=== PATIENT | male | born 1960 | race Caucasian/White ===

== ENCOUNTER → 2019-07-11 | Outpatient (CLI) | payer MEDICARE, OTHER ==
--- NOTE | 2019-07-11 14:33 | RADIOLOGY REPORT (SQ) ---
EXAM DESCRIPTION: MRI LT LOWER EXTREMITY COMBO COMPLETED DATE/TIME: 07/11/2019 1:02 pm REASON FOR STUDY: (M25.569)PAIN IN UNSPECIFIED KNEE M25.569 PAIN IN UNSPECIFIED KNEE COMPARISON: NO PLAIN FILM CORRELATION TECHNIQUE: Leftknee images acquired and stored on PACS. Multiplanar images include fat sensitive se quences as T1, water sensitive sequences as FST2 or STIR, cartilage sensitive sequences as FSPD, and gradient echo sequences. Patient was injected with 15 mL of IV Dotarem contrast, estimated GFR greater than 60 LIMITATIONS: Large field of view FINDINGS: JOINT AND BURSAE: No effusion. BONE CORTEX AND MARROW: Old healed spiral fracture distal right femoral diaphysis best shown on coron al images 14 through 17. Cortical defect in the anterior aspect, left proximal tibial metaphysis filled with enhancing granula tion tissue, best shown on axial image 33 and sagittal images 14-18. Soft tissue tract to the skin s urface, axial image 33. This could represent a traction pin tract. Small Bandar's abscess could yee ic this appearance. ACL: Thick and indistinct on sagittal images worrisome for tear PCL: Intact. MCL: Intact. No periligamentous edema or fluid. LCL: Intact. No periligamentous edema or fluid. MEDIAL MENISCUS: Not well seen, likely diffusely degenerated LATERAL MENISCUS: No tears. No abnormal signal. MEDIAL COMPARTMENT: There is high-grade chondromalacia throughout the medial compartment with a bone- on-bone appearance. There is bony spurring and subcortical edema. LATERAL COMPARTMENT: Cartilage preserved. No bone bruises or reactive marrow edema. No osteophytes. PATELLA: Mild medial patellar facet chondromalacia. No subchondral cysts. Medial and lateral retinacu la intact. EXTENSOR MECHANISM: Intact. Quadriceps and patella tendons normal. SOFT TISSUES: Adjacent muscles and subcutaneous tissues normal. Normal flow void in popliteal artery and vein. OTHER: No other significant finding. IMPRESSION: Old healed distal left femoral diaphysis fracture Advanced osteoarthritis in the medial compartment left knee, diffuse degeneration medial meniscus Defect in the anterior tibial metaphysis with a tract to the skin surface. This could represent an o ld traction pin tract with granulation tissue. Bandar's abscess could mimic this appearance. Large [id number] imaging. ACL is abnormal signal on sagittal T1 weighted images worrisome for tea r. TECHNICAL DOCUMENTATION: JOB ID: [id number] [employer]- All Rights Reserved Reading location - IP/workstation name: [email or web address]
== END ==
LOC: RAD 11:52
PROVIDERS: ATTEND Orthopaedic Surgery
DX: M25.562 Pain in left knee (principal)
CPT/HCPCS: 82565; 73720; A9576

== ENCOUNTER 2019-08-02 08:06 | Day surgery (SDC) | payer OTHER ==
[2019-07-25 10:56] LABS: HEMATOCRIT 36.1 % (37.9-51.0); HEMOGLOBIN 11.3 g/dL (13.5-17.0); MEAN CORPUSCULAR HEMOGLOBIN 22.1 pg (27.0-33.4); MEAN CORPUSCULAR HGB CONC 31.4 g/dL (32.0-36.0); MEAN CORPUSCULAR VOLUME 71 fl (80-97); PLATELET COUNT 299 10^3/uL (150-450); RED BLOOD COUNT 5.12 10^6/uL (4.35-5.55); RED CELL DISTRIBUTION WIDTH 19.7 % (11.5-14.0); WHITE BLOOD COUNT 4.2 10^3/uL (4.0-10.5)
--- NOTE | 2019-07-25 10:59 | RADIOLOGY REPORT (SQ) ---
EXAM DESCRIPTION: CHEST PA/LATERAL COMPLETED DATE/TIME: 07/25/2019 10:45 am REASON FOR STUDY: PRE-OP COMPARISON: 08/31/2013 EXAM PARAMETERS: NUMBER OF VIEWS: two views TECHNIQUE: Digital Frontal and Lateral radiographic views of the chest acquired. RADIATION DOSE: NA LIMITATIONS: none FINDINGS: LUNGS AND PLEURA: No opacities, masses or pneumothorax. No pleural effusion. MEDIASTINUM AND HILAR STRUCTURES: No masses or contour abnormalities. HEART AND VASCULAR STRUCTURES: Heart normal size. No evidence for failure. BONES: No acute findings. HARDWARE: Partially visualized cervical fusion hardware. Surgical clips overlie right axilla. OTHER: No other significant finding. IMPRESSION: No evidence of acute intrathoracic process. TECHNICAL DOCUMENTATION: JOB ID: [id number] [employer]- All Rights Reserved Reading location - IP/workstation name: [email or web address]
[2019-07-25 11:18] LABS: APPEARANCE,URINE CLEAR; BILIRUBIN,URINE NEGATIVE (NEGATIVE); COLOR,URINE YELLOW; GLUCOSE, URINE NEGATIVE (NEGATIVE); KETONES,URINE NEGATIVE (NEGATIVE); LEUKOCYTE ESTERASE,URINE NEGATIVE (NEGATIVE); NITRITE,URINE NEGATIVE (NEGATIVE); PROTEIN,URINE NEGATIVE (NEGATIVE); URINE SPECIFIC GRAVITY 1.016; UROBILINOGEN,URINE NEGATIVE mg/dL (<2.0)
[2019-07-25 11:26] LABS: ANION GAP 14 (5-19); BLOOD UREA NITROGEN 10 mg/dL (7-20); CALCIUM 9.1 mg/dL (8.4-10.2); CARBON DIOXIDE 25 mmol/L (22-30); CHLORIDE 106 mmol/L (98-107); GLUCOSE 99 mg/dL (75-110)
--- NOTE | 2019-07-27 00:01 | EKG REPORT ---
SEVERITY:- ABNORMAL ECG - SINUS RHYTHM PROBABLE LEFT ATRIAL ABNORMALITY BORDERLINE INFERIOR Q WAVES LVH VS CONSIDER ISCHEMIA, LATERAL LEADS : Confirmed by: Maye Chao 27-Jul-2019 00:00:40
[~2019-08-02 08:06] MED LIST: CEFAZOLIN SODIUM 2 GM in DEXTROSE 5%-WATER 100 ML IV PRN; LACTATED RINGERS 1000 ML IV PRN; LIDOCAINE 0.5% INJ-PF (5 MG/ML) 50 ML SDV SUBCUT PRN
[2019-08-02] MEDS ORDERED: MIDAZOLAM 2 MG/2 ML INJ ONE (11:33)
[2019-08-02] MEDS ORDERED: FENTANYL CITRATE INJ/PF 100 MCG/2 ML AMPUL ONE (11:33)
[2019-08-02] MEDS ORDERED: PROPOFOL INJ 200 MG/20 ML VIAL IV ONE (11:34)
[2019-08-02] MEDS ORDERED: MEPERIDINE HCL/PF INJ 25 MG/1 ML DISP.SYRIN IV PRN (12:19)
[2019-08-02] MEDS ORDERED: MORPHINE SULFATE 10 MG/ML INJ IV PRN (12:19)
[2019-08-02] MEDS ORDERED: DIPHENHYDRAMINE HCL 50 MG/ML VIAL IV PRN (12:19)
[2019-08-02] MEDS ORDERED: PROMETHAZINE HCL INJ 25 MG/1 ML VIAL IV PRN (12:19)
[2019-08-02] MEDS ORDERED: FENTANYL CITRATE INJ/PF 100 MCG/2 ML AMPUL IV PRN ×3 (12:19)
--- NOTE | 2019-08-02 12:39 | Operative Report ---
Operative Report DATE OF SURGERY: 08/02/19 PREOPERATIVE DIAGNOSIS: Left tibial osteomyelitis OPERATION: Excision left tibial osteomyelitis SURGEON: CHELI LUBIN ANESTHESIA: Spinal TISSUE REMOVED OR ALTERED: Tissue to pathology. Cultures to microbiology ESTIMATED BLOOD LOSS: Minimal PROCEDURE: The draining sinus tract is proximal medial tibia at the metadiaphysis. This is ellipsed out. This is carried down to the level of the bone. The underlying sinus tract into the bone is easily identified. This is initially evacuated using a curette and involves a lot of fair amount of soft tissue. A bur was then used to remove all the edges of bone within the sinus tract. Its irrigated with bulb lavage. Polymethylmethacrylate tobramycin was mixed and used to fill the hole. The wound was then closed using PDS suture. A sterile compressive dressing was applied and patient's return to the PACU in satisfactory condition.
--- NOTE | 2019-08-02 12:42 | Discharge Summary ---
Discharge Summary (SDC) - Discharge Final Diagnosis: Left tibial osteomyelitis Date of Surgery: 08/02/19 Discharge Date: 08/02/19 Condition: Good Treatment or Instructions: Weightbearing as tolerated. Remove compressive wrap on Wednesday. Underlying OpSite dressing can be left in place until you return to the office. Prescriptions: Oxycodone HCl/Acetaminophen [Percocet 5-325 mg Tablet] 1 tab PO Q6 PRN #25 tab PRN Reason: Sulfamethoxazole/Trimethoprim [Septra-Ds 800-160 mg Tablet] 1 tab PO BID #24 tablet [facility]errals: [facility] [Primary [facility]] - Discharge Diet: Regular Respiratory Treatments at Home: Deep Breathing/Coughing Discharge Activity: Balance Activity w/Rest, No tub bath Home Care Assistance: None Needed Report the Following to Your Physician Immediately: Shortness of Breath, Fever over 101 Degrees, Drainage-Foul Smelling
[2019-08-02] MEDS ORDERED: EPHEDRINE SULFATE INJ 50 MG/1 ML AMPULE ONE (13:01)
--- NOTE | 2019-08-02 15:29 | RADIOLOGY REPORT (SQ) ---
EXAM DESCRIPTION: KNEE LEFT 2 VIEWS; NO CHG FLUORO COMPLETED DATE/TIME: 08/02/2019 3:15 pm REASON FOR STUDY: LEFT KNEE OSTEOTOMY ASST WITH FLUORO IN OR M86.662 OTHER CHRONIC OSTEOMYELITIS, L EFT TIBIA AND FIBULA COMPARISON: None. FLUOROSCOPY TIME: Less than 1 minute. Spot images saved to PACS. TECHNIQUE: Intra-operative images acquired during surgical procedure to evaluate progress. NUMBER OF IMAGES: 1 LIMITATIONS: None. FINDINGS: Fluoroscopy was provided for intraoperative procedure. Please refer to the operative repo rt for further discussion. IMPRESSION: IMAGE(S) OBTAINED DURING PROCEDURE. COMMENT: Quality ID [id number]: Final reports for procedures using fluoroscopy that document radiation exp osure indices, or exposure time and number of fluorographic images (if radiation exposure indices are not available) Please consult full operative report of the attending physician for description of the procedure. TECHNICAL DOCUMENTATION: JOB ID: [id number] [employer]- All Rights Reserved Reading location - IP/workstation name: [email or web address]
--- NOTE | 2019-08-02 15:29 | RADIOLOGY REPORT (SQ) ---
EXAM DESCRIPTION: KNEE LEFT 2 VIEWS; NO CHG FLUORO COMPLETED DATE/TIME: 08/02/2019 3:15 pm REASON FOR STUDY: LEFT KNEE OSTEOTOMY ASST WITH FLUORO IN OR M86.662 OTHER CHRONIC OSTEOMYELITIS, L EFT TIBIA AND FIBULA COMPARISON: None. FLUOROSCOPY TIME: Less than 1 minute. Spot images saved to PACS. TECHNIQUE: Intra-operative images acquired during surgical procedure to evaluate progress. NUMBER OF IMAGES: 1 LIMITATIONS: None. FINDINGS: Fluoroscopy was provided for intraoperative procedure. Please refer to the operative repo rt for further discussion. IMPRESSION: IMAGE(S) OBTAINED DURING PROCEDURE. COMMENT: Quality ID [id number]: Final reports for procedures using fluoroscopy that document radiation exp osure indices, or exposure time and number of fluorographic images (if radiation exposure indices are not available) Please consult full operative report of the attending physician for description of the procedure. TECHNICAL DOCUMENTATION: JOB ID: [id number] [employer]- All Rights Reserved Reading location - IP/workstation name: [email or web address]
[2019-08-02 18:12] VITALS: BP 157/73
== END 2019-08-02 16:50 | disposition home or self-care (01) ==
LOC: OROUT 08:06
PROVIDERS: ATTEND Orthopaedic Surgery
DX: M86.662 Other chronic osteomyelitis, left tibia and fibula (principal); M86.162 Other acute osteomyelitis, left tibia and fibula; B95.61 Methicillin susceptible Staphylococcus aureus infection as the cause of diseases classified elsewhere; I10 Essential (primary) hypertension; Z87.891 Personal history of nicotine dependence; Z86.73 Personal history of transient ischemic attack (TIA), and cerebral infarction without residual deficits
CPT/HCPCS: 27640; 93005; 36415; 87070; 87205; 85027; 87075; 87077; 80048; 81001; 87186; 88305 ×2; 71046; 73560; 93010; C1713; J2250; J0690; J3490; J7060; J2704; 01480; J3010

== ENCOUNTER → 2019-10-04 | Outpatient (CLI) | payer OTHER, MEDICARE ==
[2019-10-04 09:35] LABS: ABSOLUTE EOSINOPHILS # (AUTO) 0.2 10^3/uL (0.0-0.6); ABSOLUTE LYMPHOCYTES (AUTO) 1.7 10^3/uL (0.5-4.7); ABSOLUTE MONOCYTES (AUTO) 0.8 10^3/uL (0.1-1.4); ABSOLUTE NEUT (AUTO) 2.8 10^3/uL (1.7-8.2); BASOPHILS % (AUTO) 0.9 % (0-2); HEMATOCRIT 32.1 % (37.9-51.0); HEMOGLOBIN 10.2 g/dL (13.5-17.0); LYMPHOCYTES % (AUTO) 31.1 % (13-45); MEAN CORPUSCULAR HEMOGLOBIN 22.2 pg (27.0-33.4); MEAN CORPUSCULAR HGB CONC 31.9 g/dL (32.0-36.0); MEAN CORPUSCULAR VOLUME 70 fl (80-97); MONOCYTES % (AUTO) 13.5 % (3-13); PLATELET COUNT 259 10^3/uL (150-450); RED CELL DISTRIBUTION WIDTH 18.4 % (11.5-14.0); SEGMENTED NEUTROPHILS % (AUTO) 50.5 % (42-78); TOTAL CELLS COUNTED % (AUTO) 100 %; WHITE BLOOD COUNT 5.6 10^3/uL (4.0-10.5)
[2019-10-04 09:43] LABS: APPEARANCE,URINE CLEAR; BILIRUBIN,URINE NEGATIVE (NEGATIVE); COLOR,URINE YELLOW; GLUCOSE, URINE NEGATIVE (NEGATIVE); KETONES,URINE NEGATIVE (NEGATIVE); LEUKOCYTE ESTERASE,URINE NEGATIVE (NEGATIVE); NITRITE,URINE NEGATIVE (NEGATIVE); PROTEIN,URINE NEGATIVE (NEGATIVE); URINE SPECIFIC GRAVITY 1.021; UROBILINOGEN,URINE NEGATIVE mg/dL (<2.0)
[2019-10-04 10:11] LABS: INTERNATIONAL RATION (INR) 1.08; PROTHROMBIN TIME 14.1 SEC (11.4-15.4)
[2019-10-04 10:12] LABS: PARTIAL THROMBOPLASTIN TIME 26.5 SEC (23.5-35.8)
[2019-10-04 10:14] LABS: ANION GAP 10 (5-19); BLOOD UREA NITROGEN 16 mg/dL (7-20); CARBON DIOXIDE 23 mmol/L (22-30); CHLORIDE 106 mmol/L (98-107); GLUCOSE 105 mg/dL (75-110); POTASSIUM 4.1 mmol/L (3.6-5.0)
--- NOTE | 2019-10-04 10:27 | RADIOLOGY REPORT (SQ) ---
EXAM DESCRIPTION: CHEST PA/LATERAL COMPLETED DATE/TIME: 10/04/2019 8:48 am REASON FOR STUDY: PRE-OP COMPARISON: 07/25/2019 EXAM PARAMETERS: NUMBER OF VIEWS: two views TECHNIQUE: Digital Frontal and Lateral radiographic views of the chest acquired. RADIATION DOSE: NA LIMITATIONS: none FINDINGS: LUNGS AND PLEURA: No opacities, masses or pneumothorax. No pleural effusion. MEDIASTINUM AND HILAR STRUCTURES: No masses or contour abnormalities. HEART AND VASCULAR STRUCTURES: Heart normal size. No evidence for failure. BONES: No acute findings. HARDWARE: None in the chest. OTHER: No other significant finding. IMPRESSION: NO SIGNIFICANT RADIOGRAPHIC FINDING IN THE CHEST. TECHNICAL DOCUMENTATION: JOB ID: [id number] [email or web address]- All Rights Reserved Reading location - IP/workstation name: [email or web address]
--- NOTE | 2019-10-04 11:39 | EKG REPORT ---
SEVERITY:- ABNORMAL ECG - SINUS RHYTHM LEFT ATRIAL ABNORMALITY LEFT VENTRICULAR HYPERTROPHY BORDERLINE INFERIOR Q WAVES ABNORMAL T, CONSIDER ISCHEMIA, DIFFUSE LEADS : Confirmed by: Magali Kunz MD 04-Oct-2019 11:38:35
== END ==
LOC: OD 08:19
PROVIDERS: ATTEND Orthopaedic Surgery
DX: Z01.812 Encounter for preprocedural laboratory examination (principal); Z01.810 Encounter for preprocedural cardiovascular examination; Z01.811 Encounter for preprocedural respiratory examination; M17.12 Unilateral primary osteoarthritis, left knee; I10 Essential (primary) hypertension
CPT/HCPCS: 36415; 71046; 80048; 81001; 85025; 85610; 85652; 85730; 86140; 93005; 93010

== ENCOUNTER 2019-10-18 09:30 | Inpatient (IN) | payer OTHER, MEDICARE ==
[2019-11-01] MEDS ORDERED: LIDOCAINE 0.5% INJ-PF (5 MG/ML) 50 ML SDV SUBCUT PRN (05:00)
[2019-11-01] MEDS ORDERED: IBUPROFEN 800 MG in NORMAL SALINE 250 ML IV PRN (05:00)
[2019-11-01] MEDS ORDERED: CEFAZOLIN INJ 1 GM VIAL IV PRN (05:00)
[2019-11-01] MEDS ORDERED: PANTOPRAZOLE SODIUM 20 MG TABLET.DR PO PRN (05:00)
[2019-11-01] MEDS ORDERED: VANCOMYCIN HCL 1,000 MG in DEXTROSE 5%-WATER 250 ML IV PRN (05:00)
[2019-11-01] MEDS ORDERED: LACTATED RINGERS 1000 ML IV PRN (05:00)
[2019-11-01] MEDS ORDERED: OXYCODONE HCL SR 10 MG TABLET PO PRN (05:00)
[2019-11-01] MEDS ORDERED: CEFAZOLIN INJ 1 GM VIAL ONE (05:39)
[2019-11-01] MEDS ORDERED: OXYCODONE HCL SR 10 MG TABLET PO ONE (05:39)
[2019-11-01] MEDS ORDERED: PANTOPRAZOLE SODIUM 20 MG TABLET.DR PO ONE (05:39)
[2019-11-01] MEDS ORDERED: FENTANYL CITRATE INJ/PF 100 MCG/2 ML AMPUL ONE (07:11)
[2019-11-01] MEDS ORDERED: KETAMINE HCL INJ 500 MG/10 ML VIAL ONE (07:11)
[2019-11-01] MEDS ORDERED: TRANEXAMIC ACID INJ/PF 1,000 MG/10 ML SDV ONE ×2 (07:12→10:16)
[2019-11-01] MEDS ORDERED: MIDAZOLAM 2 MG/2 ML INJ ONE (07:12)
[2019-11-01] MEDS ORDERED: PROPOFOL INJ 200 MG/20 ML VIAL IV ONE (07:12)
[2019-11-01] MEDS ORDERED: BUPIVACAINE INJ/PF LIPOSOME/PF 266 MG/20 ML SDV ONE (07:14)
[2019-11-01] MEDS ORDERED: VANCOMYCIN HCL INJ 1000 MG VIAL ONE (07:23)
[2019-11-01] MEDS ORDERED: MEPERIDINE HCL/PF INJ 25 MG/1 ML DISP.SYRIN IV PRN (08:11)
[2019-11-01] MEDS ORDERED: DIPHENHYDRAMINE HCL 50 MG/ML VIAL IV PRN (08:11)
[2019-11-01] MEDS ORDERED: PROMETHAZINE HCL INJ 25 MG/1 ML VIAL IV PRN ×2 (08:11)
[2019-11-01] MEDS ORDERED: OXYCODONE-ACETAMINOPHEN 5-325 MG TABLET PO PRN ×2 (08:11)
[2019-11-01] MEDS ORDERED: FENTANYL CITRATE INJ/PF 100 MCG/2 ML AMPUL IV PRN ×3 (08:11)
[2019-11-01] MEDS ORDERED: PHENYLEPHRINE HCL INJ/PF 10 MG/1 ML SDV ONE (08:24)
[2019-11-01] MEDS ORDERED: ONDANSETRON HCL 8 MG TABLET PO PRN (08:48)
--- NOTE | 2019-11-01 08:48 | Operative Report ---
Operative Report DATE OF SURGERY: 11/01/19 PREOPERATIVE DIAGNOSIS: Posttraumatic left knee arthritis OPERATION: Left knee arthroplasty SURGEON: CHELI LUBIN ANESTHESIA: Spinal TISSUE REMOVED OR ALTERED: Bone to pathology ESTIMATED BLOOD LOSS: 25 PROCEDURE: Implants used: Femur: [place] triathlon size 6 CR femur Tibia: 6 tibia Tibial liner: 9 mm CS insert Patella: 38 mm oval patella Preamble: The patient is status post balance skeletal traction for a left distal third femur fracture in the distant past with a subsequent development of a chronic osteomyelitis and a draining sinus tract from the tibia that persisted for approximately 30 years. The patient underwent an excision of the sequestrum several months ago and laboratory values subsequently normalized. Procedure: With the patient supine on the operating table the left the limb is prepped and draped in a sterile fashion. The limb was elevated for exsanguination and the tourniquet inflated to 280 torr. A standard midline median parapatellar approach the knee is taken. Access is gained to the femoral canal through the intercondylar notch. Intramedullary alignment instrumentation used to resect 10 mm of distal femur in 5 of valgus. Because of the distal femoral malunion the intramedullary guide don could not be inserted completely into the diaphysis. Hence an extra medullary guide system was used to check the alignment of felt to be adequate. Sizing guide indicated a size 6 femur. Appropriate cutting jig is then used to fashion anterior posterior and chamfer cuts. A trial reduction femurs performed and this is judged to be adequate. Attention was next turned to the tibia. Using an extra medullary alignment system 9 millimeters was resected off the lateral tibial plateau. Because the tibia had head chronic osteomyelitis in the past cultures were taken of the cuts tibial surface and sent to microbiology. This is sized to a size 6 tibia. A trial reduction was now performed with a 6 femur and a 6 tibia using a 9 millimeters spacer. It is full extension and central patellofemoral tracking. The articular surface the patella was next resected using an oscillating saw. All trial implants were removed. Polymethylmethacrylate is mixed and used to cement the above implants in place. On adequate curing the cement excess cement was removed the tourniquet was deflated hemostasis obtained the wound is then closed in layers using interrupted Vicryl followed by roxana. A sterile compressive dressing was applied and the patient returned to recovery room in satisfactory condition.
[2019-11-01] MEDS ORDERED: RINGERS SOLUTION,LACTATED 1,000 ML IV PRN (08:49)
[2019-11-01] MEDS ORDERED: ZOLPIDEM TARTRATE 5 MG TABLET PO PRN (08:49)
[2019-11-01] MEDS ORDERED: MAG HYDROX/AL HYDROX/SIMETH SUSP 30 ML UDCUP PO PRN (08:49)
[2019-11-01] MEDS ORDERED: ACETAMINOPHEN 325 MG TABLET PO PRN (08:49)
[2019-11-01] MEDS ORDERED: ONDANSETRON HCL INJ/PF 4 MG/2 ML SDV IV PRN (08:49)
[2019-11-01] MEDS ORDERED: TRANEXAMIC ACID INJ/PF 1,000 MG/10 ML SDV IV ONE (10:00)
--- NOTE | 2019-11-01 10:02 | RADIOLOGY REPORT (SQ) ---
EXAM DESCRIPTION: KNEE LEFT 2 VIEWS COMPLETED DATE/TIME: 11/01/2019 9:50 am REASON FOR STUDY: Post OP -Long Cassette in PACU M17.12 UNILATERAL PRIMARY OSTEOARTHRITIS, LEFT KNE E COMPARISON: None. NUMBER OF VIEWS: Two view(s). TECHNIQUE: Digital radiographic images of the left knee post-procedure. LIMITATIONS: None. FINDINGS: BONES: No worrisome or unexpected findings post-procedure. Dysmorphic distal femur lizy tible with remote injury. Additional posttraumatic/surgical changes at the proximal tibial with intr amedullary methylmethacrylate. DEVICE: Total knee arthroplasty. SOFT TISSUES: No worrisome findings. Expected postoperative soft tissue changes. Vascular calcific ations. IMPRESSION: SATISFACTORY POSTOPERATIVE LEFT KNEE. TECHNICAL DOCUMENTATION: JOB ID: [id number] 2011 [employer]- All Rights Reserved Reading location - IP/workstation name: [email or web address]
[2019-11-01] MEDS: IBUPROFEN 800 MG in NORMAL SALINE 250 ML IV SCH ×2 (13:46→21:17)
[2019-11-01] MEDS: DIPHENHYDRAMINE HCL 50 MG/ML VIAL IV PRN ×2 (14:58→21:18)
[2019-11-01] MEDS: OXYCODONE HCL IR 5 MG TABLET PO PRN (15:04)
[2019-11-01] MEDS: SENNOSIDES/DOCUSATE 8.6-50 MG 1 EACH TABLET PO SCH (17:30)
[2019-11-01] MEDS: PANTOPRAZOLE SODIUM 40 MG TABLET.DR PO SCH (17:30)
[2019-11-01] MEDS ORDERED: AMLODIPINE BESYLATE 5 MG TABLET PO ONE ×2 (19:02→22:00)
[2019-11-01] MEDS ORDERED: HYDRALAZINE HCL INJ/PF 20 MG/1 ML SDV IV PRN (19:02)
--- NOTE | 2019-11-01 19:19 | PDOC CONSULTATION ---
Consultation Consult Date: 11/01/19 Attending physician:: CHELI LUBIN Provider Consulted: JENNIE PONCE Consult reason:: HTN History of Present Illness Admission Date/PCP: 11/01/19 05:[facility] Patient complains of: left knee pain s/p arthroplasty History of Present Illness: SELMA CROOKS is a 59 year old male with a past medical history of h ypertension, GERD, stage IV throat cancer who is admitted to orthopedics for left knee arthroplasty. Hospitalist service was consulted due to postoperative hypertension (175/56). EKG (10/04/2019) showed LVH. CXR (10/04/2019) was negative for significant findings. No pre-or postoperative laboratory work is available. Patient was briefly seen this evening. He is found sitting up to the recliner, comfortably, on room air. He denies all complaints of headache, dizziness, chest pain, palpitations, dyspnea, orthopnea. He is uncertain as to how well controlled his blood pressure is on his home medi cation regiment. However, he is adamant that he took his morning lisinopril dose. Otherwise, he has no questions or concerns today; hopeful to discharge home tomorrow as previously planned. No concerns per nursing. Past Medical History Cardiac Medical History: Reports: Coronary Artery Disease, Hyperlipidema, Hypertension Denies: Atrial Fibrillation, Congestive Heart Failure, Myocardial Infarction Pulmonary Medical History: Reports: None EENT Medical History: Reports: None Neurological Medical History: Reports: None Endocrine Medical History: Reports: Obesity Denies: Diabetes Mellitus Type 2, Hypothyroidism Renal/ Medical History: Reports: None Malignancy Medical History: Reports: Other GI Medical History: Reports: Gastroesophageal Reflux Disease Denies: Crohn's Disease, Hiatal Hernia Musculoskeltal Medical History: Reports: Arthritis Denies: Fibromyalgia Psychiatric Medical History: Reports: Post Traumatic Stress Disorder Denies: Depression, General Anxiety Disorder Traumatic Medical History: Reports: None Hematology: Denies: Anemia Infectious Medical History: Reports: None Past Surgical History Past Surgical History: Reports: Orthopedic Surgery - Back surgery x2, left femur fracture as a teenager Denies: Cardiac Catheterization, Coronary Artery Bypass Graft, Coronary Stent, Valve Replacement, Vascular Surgery Social History Information Source: Patient Lives with: Family Smoking Status: Former Smoker Frequency of Alcohol Use: Social Last Alcohol Use: 10/28/19 - "few drinks on weekends" Hx Recreational Drug Use: No Hx Prescription Drug Abuse: No - Advance Directive Resuscitation Status: Full Code Family History Family History: Reviewed & Not Pertinent Parental Family History Reviewed: Yes Children Family History Reviewed: Yes Sibling(s) Family History Reviewed.: Yes Medication/Allergy Home Medications: Aspirin [Aspirin EC] 81 mg PO DAILY 08/31/13 Lisinopril [Prinivil 40 mg Tablet] 40 mg PO BID 08/31/13 Isosorbide Mononitrate [Imdur 30 mg Tablet.er] 30 mg PO DAILY 08/01/19 Pantoprazole Sodium 40 mg PO BID 08/01/19 Ondansetron HCl [Zofran 8 mg Tablet] 8 mg PO Q4HP PRN 10/26/19 Allergies/Adverse Reactions: codeine Allergy (Mild, Verified 11/01/19 14:02) Generalized Itching Review of Systems Constitutional: ABSENT: chills, fever(s), headache(s), weight gain, weight loss Eyes: ABSENT: visual disturbances Ears: ABSENT: hearing changes Cardiovascular: ABSENT: chest pain, dyspnea on exertion, edema, orthropnea, palpitations Respiratory: ABSENT: cough, hemoptysis Gastrointestinal: ABSENT: abdominal pain, constipation, diarrhea, hematemesis, hematochezia, nausea, vomiting Genitourinary: ABSENT: dysuria, hematuria Musculoskeletal: PRESENT: as per HPI. ABSENT: joint swelling Integumentary: ABSENT: rash, wounds Neurological: ABSENT: abnormal gait, abnormal speech, confusion, dizziness, focal weakness, syncope Psychiatric: ABSENT: anxiety, depression, homidical ideation, suicidal ideation Endocrine: ABSENT: cold intolerance, heat intolerance, polydipsia, polyuria Hematologic/Lymphatic: ABSENT: easy bleeding, easy bruising Physical Exam Vital Signs: Temp Pulse Resp BP Pulse Ox 97.3 F 89 16 178/76 H 97 11/01/19 16:29 11/01/19 16:29 11/01/19 16:29 11/01/19 17:38 11/01/19 16:29 Intake & Output 10/31/19 11/01/19 11/02/19 06:59 06:59 06:59 Intake Total 0 5427 Output Total 3429 Balance 0 1997 Weight 104.6 kg General appearance: PRESENT: no acute distress, cooperative, obese, well- developed, well-nourished Head exam: PRESENT: atraumatic, normocephalic Eye exam: PRESENT: conjunctiva pink, EOMI, PERRLA. ABSENT: scleral icterus Mouth exam: PRESENT: moist, tongue midline Neck exam: ABSENT: carotid bruit, JVD, lymphadenopathy, thyromegaly Respiratory exam: PRESENT: clear to auscultation marques, symmetrical, unlabored. ABSENT: rales, rhonchi, wheezes Cardiovascular exam: PRESENT: RRR, +S1, +S2. ABSENT: diastolic murmur, rubs, systolic murmur Rectal exam: PRESENT: deferred Extremities exam: PRESENT: tenderness - lt knee. ABSENT: calf tenderness, clubbing, pedal edema Musculoskeletal exam: PRESENT: ambulatory - w/ walker Neurological exam: PRESENT: alert, awake, oriented to person, oriented to place, oriented to time, oriented to situation, CN II-XII grossly intact. ABSENT: motor sensory deficit Psychiatric exam: PRESENT: appropriate affect, normal mood. ABSENT: homicidal ideation, suicidal ideation Skin exam: PRESENT: dry, intact, warm. ABSENT: cyanosis, rash Results Impressions: Knee X-Ray 11/01/19 08:51 IMPRESSION: SATISFACTORY POSTOPERATIVE LEFT KNEE. Assessment and Plan - Diagnosis (1) Hypertension Qualifiers: Hypertension type: essential hypertension Qualified Code(s): I10 - Essential (primary) hypertension Is this a current diagnosis for this admission?: Yes Plan: Patient w/ history of HTN; likely worsened secondary to pain CBC, BMP pending Continue home dose lisinopril and Isosorbide. Amlodipine 5 mg p.o. x 1 IV hydralazine as needed for blood pressure control. Daily aspirin therapy. Appropriate pain control as per Orthopedics. Cardiac diet. (2) Obesity (BMI 30-39.9) Is this a current diagnosis for this admission?: Yes Plan: Cardiac diet. Lifestyle modification and dietary discretion advised. (3) GERD (gastroesophageal reflux disease) Qualifiers: Esophagitis presence: without esophagitis Qualified Code(s): K21.9 - Gastro-esophageal reflux disease without esophagitis Is this a current diagnosis for this admission?: Yes Plan: Continue home dose Protonix. (4) History of arthroplasty of left knee Is this a current diagnosis for this admission?: Yes Plan: Left knee arthroplasty by Dr. Lubin today. Management per his expertise - Time Time Spent with patient: 25-34 minutes Medications reviewed and adjusted accordingly: Yes Anticipated discharge: Home
[2019-11-01] MEDS ORDERED: VANCOMYCIN HCL 1,000 MG in DEXTROSE 5%-WATER 250 ML IV ONE (20:49)
[2019-11-01] MEDS: OXYCODONE HCL SR 10 MG TABLET PO SCH (21:18)
[2019-11-01] MEDS: LISINOPRIL 10 MG TABLET PO SCH (21:20)
[2019-11-02] MEDS: OXYCODONE HCL IR 5 MG TABLET PO PRN (02:01)
[2019-11-02 06:13] LABS: HEMATOCRIT 32.3 % (37.9-51.0); HEMOGLOBIN 10.2 g/dL (13.5-17.0); MEAN CORPUSCULAR HEMOGLOBIN 21.9 pg (27.0-33.4); MEAN CORPUSCULAR HGB CONC 31.4 g/dL (32.0-36.0); MEAN CORPUSCULAR VOLUME 70 fl (80-97); PLATELET COUNT 224 10^3/uL (150-450); RED BLOOD COUNT 4.64 10^6/uL (4.35-5.55); RED CELL DISTRIBUTION WIDTH 18.5 % (11.5-14.0); WHITE BLOOD COUNT 8.7 10^3/uL (4.0-10.5)
[2019-11-02 06:37] LABS: ANION GAP 10 (5-19); BLOOD UREA NITROGEN 18 mg/dL (7-20); CALCIUM 8.8 mg/dL (8.4-10.2); CARBON DIOXIDE 26 mmol/L (22-30); CHLORIDE 104 mmol/L (98-107); GLUCOSE 101 mg/dL (75-110); POTASSIUM 4.4 mmol/L (3.6-5.0)
[2019-11-02] MEDS: IBUPROFEN 800 MG in NORMAL SALINE 250 ML IV SCH (06:55)
--- NOTE | 2019-11-02 07:04 | PDOC DISCHARGE SUMMARY ---
Impression - Admit/DC Date/PCP Admission Date/Primary Care Provider: 11/01/19 05:[facility] Discharge Date: 11/02/19 - Discharge Diagnosis (1) Arthritis of left knee Is this a current diagnosis for this admission?: Yes (2) Hypertension Is this a current diagnosis for this admission?: Yes - Additional Information Resuscitation Status: Full Code Discharge Diet: Regular Discharge Activity: Balance Activity w/Rest, No tub bath Referrals: CHELI LUBIN MD [ACTIVE STAFF] - 11/14/19 9:30 am Home Medications: Aspirin [Aspirin EC] 81 mg PO DAILY 08/31/13 Lisinopril [Prinivil 40 mg Tablet] 40 mg PO BID 08/31/13 Isosorbide Mononitrate [Imdur 30 mg Tablet.er] 30 mg PO DAILY 08/01/19 Pantoprazole Sodium 40 mg PO BID 08/01/19 Ondansetron HCl [Zofran 8 mg Tablet] 8 mg PO Q4HP PRN 10/26/19 History of Present Illiness History of Present Illness: SELMA CROOKS is a 59 year old male 59-year-old black male with a posttraumatic left knee osteoarthritis and a longstanding draining osteomyelitis which was treated recently by excision of the sequestrum. Patient is now admitted for elective left knee arthroplasty. Hospital Course Hospital Course: Patient is admitted through the operating where he undergoes uncomplicated left knee arthroplasty. Is returned to floor in satisfactory vision. He ambulates 150 feet with physical therapy on the day of surgery. Compressive dressing was removed on the first postoperative morning. Underlying OpSite dressings clean dry and intact. Physical Exam Vital Signs: Temp Pulse Resp BP Pulse Ox 36.9 C 84 18 173/69 H 95 11/02/19 04:03 11/02/19 04:03 11/02/19 04:03 11/02/19 04:03 11/02/19 04:03 Intake & Output 11/01/19 11/02/19 11/03/19 06:59 06:59 06:59 Intake Total 0 5977 Output Total 3429 Balance 0 2548 Weight 104.6 kg General appearance: PRESENT: mild distress Head exam: PRESENT: normocephalic Respiratory exam: PRESENT: unlabored Cardiovascular exam: PRESENT: RRR GI/Abdominal exam: PRESENT: soft Rectal exam: PRESENT: deferred Musculoskeletal exam: PRESENT: other - Left knee OpSite dressings clean dry and intact. Minimal pedal edema. Distal neurovascular examination is intact. Results Laboratory Results: WBC 8.7 10^3/uL (4.0-10.5) 11/02/19 05:28 RBC 4.64 10^6/uL (4.35-5.55) 11/02/19 05:28 Hgb 10.2 g/dL (13.5-17.0) L 11/02/19 05:28 Hct 32.3 % (37.9-51.0) L 11/02/19 05:28 MCV 70 fl (80-97) L 11/02/19 05:28 MCH 21.9 pg (27.0-33.4) L 11/02/19 05:28 MCHC 31.4 g/dL (32.0-36.0) L 11/02/19 05:28 RDW 18.5 % (11.5-14.0) H 11/02/19 05:28 Plt Count 224 10^3/uL (150-450) 11/02/19 05:28 Sodium 140.1 mmol/L (137-145) 11/02/19 05:28 Potassium 4.4 mmol/L (3.6-5.0) 11/02/19 05:28 Chloride 104 mmol/L (98-107) 11/02/19 05:28 Carbon Dioxide 26 mmol/L (22-30) 11/02/19 05:28 Anion Gap 10 (5-19) 11/02/19 05:28 BUN 18 mg/dL (7-20) 11/02/19 05:28 Creatinine 1.47 mg/dL (0.52-1.25) H 11/02/19 05:28 Est GFR ( Amer) 59 (>60) L 11/02/19 05:28 Est GFR (MDRD) Non-Af 49 (>60) L 11/02/19 05:28 Glucose 101 mg/dL (75-110) 11/02/19 05:28 Calcium 8.8 mg/dL (8.4-10.2) 11/02/19 05:28 Impressions: Knee X-Ray 11/01/19 08:51 IMPRESSION: SATISFACTORY POSTOPERATIVE LEFT KNEE. Plan Plan of Treatment: Discharge home on a weightbearing as tolerated basis with home health services and DME. Follow-up with Dr. Lubin and [facility] for surgery in 2 weeks for staple removal. Time Spent: Less than 30 Minutes Stroke Is this a Stroke Patient?: No Stroke Pt being discharged on Anti-thrombolytic therapy?: Yes Acute Heart Failure - Is this a Heart Failure Patient?: No
[2019-11-02] MEDS: OXYCODONE HCL SR 10 MG TABLET PO SCH (08:48)
[2019-11-02] MEDS: PANTOPRAZOLE SODIUM 40 MG TABLET.DR PO SCH (09:08)
[2019-11-02] MEDS: LISINOPRIL 10 MG TABLET PO SCH (09:08)
[2019-11-02] MEDS: SENNOSIDES/DOCUSATE 8.6-50 MG 1 EACH TABLET PO SCH (09:08)
[2019-11-02] MEDS ORDERED: PRENATAL VITAMIN W DHA CAPSULE PO SCH (10:00)
[2019-11-02] MEDS ORDERED: ASPIRIN 81 MG TABLET, ENT COATED PO SCH (10:00)
[2019-11-02] MEDS ORDERED: ISOSORBIDE MONONITRATE 30 MG TAB.ER.24H PO SCH (10:00)
[2019-11-02 10:21] VITALS: BP 163/80
== END 2019-11-02 10:36 | disposition home health service (06) | DRG 470 ==
LOC: INOR 11-01 05:28 → 4S 11-01 11:05
PROVIDERS: ADMIT Orthopaedic Surgery; ATTEND Orthopaedic Surgery
PROC: 0SRD0J9 Replacement of Left Knee Joint with Synthetic Substitute, Cemented, Open Approach (ICD-10-PCS; principal; 2019-11-01 07:30)
DX: M17.32 Unilateral post-traumatic osteoarthritis, left knee (principal); I10 Essential (primary) hypertension; T14.90XS Injury, unspecified, sequela; K21.9 Gastro-esophageal reflux disease without esophagitis; E78.5 Hyperlipidemia, unspecified; I25.10 Atherosclerotic heart disease of native coronary artery without angina pectoris; E66.9 Obesity, unspecified; I45.9 Conduction disorder, unspecified; F43.10 Post-traumatic stress disorder, unspecified; Z87.891 Personal history of nicotine dependence; Z79.899 Other long term (current) drug therapy; Z88.5 Allergy status to narcotic agent; Z85.01 Personal history of malignant neoplasm of esophagus; Z87.81 Personal history of (healed) traumatic fracture
CPT/HCPCS: 36415; 80048; 85027; 87070; 87075; 87205; 88305; 88311; C1713; C1776; C9290; J0690; J1200; J1741; J2250; J2370; J2405; J2704; J3010; J3370; J3490; J7050; J7060